=== PATIENT | male | born 1985 | race African-American/Black ===

== ENCOUNTER 2016-12-16 06:09 | Emergency (ER) | payer SELFPAY ==
[2016-12-16] MEDS ORDERED: ULTRAM PO ONE (06:12)
[2016-12-16] MEDS ORDERED: KEFLEX CAP 500 MG PO ONE ×2 (06:13→07:32)
[2016-12-16] MEDS ORDERED: HYDROGEN PEROXIDE 3% ONE (06:16)
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
[2016-12-16 06:22] VITALS: BP 138/92; BMI 24.4
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
[2016-12-16] MEDS ORDERED: ULTRAM ONE (07:33)
== END 2016-12-16 07:50 | disposition home or self-care (01) ==
LOC: ER 06:09
PROC: 0WQ20ZZ Repair Face, Open Approach (ICD-10-PCS; principal; 2016-12-16)
DX: S01.91XA Laceration without foreign body of unspecified part of head, initial encounter (principal); S33.5XXA Sprain of ligaments of lumbar spine, initial encounter; V49.9XXA Car occupant (driver) (passenger) injured in unspecified traffic accident, initial encounter
CPT/HCPCS: 12013; 72125; 72131; 99283